=== PATIENT | female | born 1975 | race African-American/Black ===

== ENCOUNTER 2022-03-09 11:50 | Emergency (ER) | payer BC, SELFPAY ==
[~2022-03-09 11:50] MED LIST: Calcium Chloride 1 GM/10 ML Abboject SYRINGE ONE; EPINEPHrine 1 MG/10 ML Abboject SYRINGE ONE; Sodium Bicarb 50 MEQ/50 ML Abboject 8.4% SYRINGE ONE
== END 2022-03-09 13:38 | disposition expired ==
LOC: MADERS 11:50 → EDBD 11:50 → MADERS 13:38
DX: I46.9 Cardiac arrest, cause unspecified (principal)
CPT/HCPCS: 92950; G0390; J0171